=== PATIENT | male | born 1970 | race Caucasian/White ===

== ENCOUNTER → 2017-02-18 | Outpatient (CLI) | payer OTHER ==
[2017-02-07 14:05] VITALS: BP 141/77
[~2017-02-18] MED LIST: GLAT40SY SQ; HYDR-971 PO; IBUP-1060 PO; SULF1TAB24 PO
--- NOTE | 2017-02-18 13:15 | RAD ---
3 views left finger radiograph 02/18/2017 Clinical indication: Closed fracture of the tuft distal phalanx. Comparison: Left hand radiograph 02/07/2017 Findings: There is a persistent displaced and comminuted fracture of the distal tuft second distal phalanx with no significant change in appearance or alignment. There is soft tissue swelling about the distal second digit. Impression: No significant change in appearance of comminuted and mildly displace the second distal tuft fracture with no significant interval healing.
== END | disposition home or self-care (01) ==
LOC: RAD 12:24
PROVIDERS: ATTEND Nurse Practitioner Gerontology
DX: S62.631A Displaced fracture of distal phalanx of left index finger, initial encounter for closed fracture (principal); X58.XXXA Exposure to other specified factors, initial encounter; Y93.89 Activity, other specified; Y92.89 Other specified places as the place of occurrence of the external cause; Y99.8 Other external cause status
CPT/HCPCS: 73140

== ENCOUNTER → 2017-12-30 | Outpatient (CLI) | payer OTHER, MEDICARE ==
[2017-02-07 14:05] VITALS: BP 141/77
[~2017-12-30] MED LIST changes: +GADOBUTROL 7.5 MMOL/7.5 ML VIAL IV ONE
--- NOTE | 2017-12-30 17:02 | KCIC ---
MRI of the Brain without and with Contrast 12/30/2017 Clinical History: Multiple sclerosis. Technique: Unenhanced T1-weighted and FLAIR sagittal and axial and gradient echo, T2-weighted and diffusion-weighted axial images of the brain were obtained. After the intravenous administration of 5 cc of Gadavist, enhanced T1-weighted axial and coronal images of the brain were obtained. Findings: Comparison study is dated 02/01/2014. The ventricles and sulci are within normal limits in size and configuration. Patchy, confluent and multiple predominantly oval-shaped areas of abnormally increased signal intensity are seen within the periventricular, deep and subcortical white matter of both renal hemispheres on the FLAIR and T2-weighted images consistent with the patient's history of multiple sclerosis. These have not significantly changed. No new lesion is seen. No area of abnormal contrast enhancement is noted. No acute parenchymal abnormality is seen. There is no MRI evidence of acute ischemia/infarction. No extra-axial fluid collection is seen. Mild to moderate mucosal thickening is seen throughout the paranasal sinuses. Mucus retention cysts are seen involving the right maxillary sinus which measure 1 to 1.6 cm in size. Normal flow voids are seen within the major vascular structures surrounding the brain parenchyma. IMPRESSION: Findings are seen consistent with the patient's history of multiple sclerosis. These are unchanged. No new lesion is seen. No area of abnormal contrast enhancement is noted. Electronically signed by: Gopi Bowers MD (12/30/2017 4:58 PM) [id number]
== END | disposition home or self-care (01) ==
LOC: KCIC MRI 13:34
PROVIDERS: ATTEND Psychiatry & Neurology Neurology with Special Qualifications in Child Neurology
DX: G35 Multiple sclerosis (principal); J34.1 Cyst and mucocele of nose and nasal sinus; J45.909 Unspecified asthma, uncomplicated
CPT/HCPCS: 70553; A9585